=== PATIENT | female | born 1990 | race African-American/Black ===

== ENCOUNTER 2018-10-30 02:33 | Emergency (ER) | payer SELFPAY | END 2018-10-30 03:03 | disposition home or self-care (01) | LOC: SCSER 02:33 | DX: K02.9 Dental caries, unspecified (principal); J45.909 Unspecified asthma, uncomplicated | CPT/HCPCS: 99282 ==

== ENCOUNTER 2019-03-29 00:34 | Emergency (ER) | payer SELFPAY ==
[2019-03-29] MEDS ORDERED: HYDROcodone/Acetaminophen 10/325 mg Tablet ONE (01:05)
[2019-03-29] MEDS ORDERED: Ibuprofen 800 MG TAB ONE (01:06)
== END 2019-03-29 01:14 | disposition home or self-care (01) ==
LOC: SCSER 00:34
DX: S39.012A Strain of muscle, fascia and tendon of lower back, initial encounter (principal); J45.909 Unspecified asthma, uncomplicated; X50.0XXA Overexertion from strenuous movement or load, initial encounter; Y99.0 Civilian activity done for income or pay
CPT/HCPCS: 99283

== ENCOUNTER 2019-04-01 21:04 | Emergency (ER) | payer SELFPAY | END 2019-04-01 22:02 | disposition home or self-care (01) | LOC: SCSER 21:04 | DX: S39.012A Strain of muscle, fascia and tendon of lower back, initial encounter (principal); E66.9 Obesity, unspecified; J45.909 Unspecified asthma, uncomplicated; X50.9XXA Other and unspecified overexertion or strenuous movements or postures, initial encounter | CPT/HCPCS: 99283 ==

== ENCOUNTER 2019-06-15 12:11 | Emergency (ER) | payer SELFPAY ==
[2019-06-15] MEDS ORDERED: HYDROcodone/Acetaminophen 5/325 mg Tablet ONE (12:27)
[2019-06-15] MEDS ORDERED: Ketorolac Tromethamine 60 MG/2 ML VIAL ONE (12:29)
== END 2019-06-15 12:35 | disposition home or self-care (01) ==
LOC: ERS 12:11
DX: M54.42 Lumbago with sciatica, left side (principal); E66.9 Obesity, unspecified; J45.909 Unspecified asthma, uncomplicated
CPT/HCPCS: 96372; 99283; J1885